=== PATIENT | female | born 1935 | race Caucasian/White ===

== ENCOUNTER 2021-12-31 07:35 | Day surgery (SDC) | payer MEDICARE ==
[~2021-12-31] VITALS: Ht 160 cm; Wt 81.4 kg
[2021-12-31] VITALS (10 sets, daily range): BP systolic 148–161; BP diastolic 43–109
[~2021-12-31 07:35] MED LIST: ASPI81TA52 PO; CLOP75TA34 PO; GLIM4TAB7 PO; LEVE250T PO; LIDOcaine 1%/PF 5ML 10 MG/ML VIAL IJ ONE; LOPE2CAP PO; MIDO5TAB4 PO; PIOG30TA10 PO; SIMV-42 PO; TRIA1CAP6 PO
[2021-12-31] MEDS ORDERED: albumin 25% 100mL bottle x 1 IV PRN (07:55)
[2021-12-31] MEDS ORDERED: ATOR-2 PO (08:06)
[2021-12-31] MEDS ORDERED: METO-384 PO (08:06)
[2021-12-31] MEDS ORDERED: CLOP75TA15 PO (08:10)
[2021-12-31 11:18] LABS: BF WBC COUNT 450 /CU MM (0-1000); BFAPPEAR HAZY; BFCOLOR YELLOW; BFVOLUME 50 ML
[2021-12-31 11:19] LABS: BF MESOTHELIAL CELLS FEW; BF RBC COUNT 880 /CU MM; LYMPHOCYTES,BODY FLUID 88 %; MONOCYTES,BODY FLUID 5 %; NEUTROPHILS,BODY FLUID 7 %
== END 2021-12-31 11:30 | disposition home or self-care (01) ==
LOC: SSTAY O 07:35
PROVIDERS: ATTEND Radiology Vascular & Interventional Radiology
DX: J90 Pleural effusion, not elsewhere classified (principal); E11.9 Type 2 diabetes mellitus without complications; I10 Essential (primary) hypertension; E78.00 Pure hypercholesterolemia, unspecified; E66.01 Morbid (severe) obesity due to excess calories; Z68.31 Body mass index [BMI] 31.0-31.9, adult; I65.22 Occlusion and stenosis of left carotid artery; Z85.42 Personal history of malignant neoplasm of other parts of uterus; Z86.73 Personal history of transient ischemic attack (TIA), and cerebral infarction without residual deficits; Z87.440 Personal history of urinary (tract) infections; Z79.899 Other long term (current) drug therapy; Z98.890 Other specified postprocedural states; Z79.84 Long term (current) use of oral hypoglycemic drugs
CPT/HCPCS: 32555; 89051

== ENCOUNTER 2022-03-29 14:25 | Observation (INO) | payer MEDICARE ==
[2022-03-25 12:40] LABS: BASOPHILS % (AUTO) 0.1 % (0-1); EOSINOPHILS % (AUTO) 0 % (0-6); HEMATOCRIT 42.4 % (35.0-45.0); HEMOGLOBIN 13.7 g/dl (12.0-16.0); LYMPHOCYTES # (AUTO) 1.8 X10'3 (1.1-4.8); LYMPHOCYTES % (AUTO) 23.9 % (21-51); MEAN CORPUSCULAR HEMOGLOBIN 29.4 PG (27.0-31.0); MEAN CORPUSCULAR HGB CONC 32.3 g/dL (33.0-36.5); MEAN CORPUSCULAR VOLUME 90.9 FL (78-98); MONOCYTES # (AUTO) 0.4 X10'3 (0-0.9); MONOCYTES % (AUTO) 5.8 % (2-12); NEUTROPHILS # (AUTO) 5.4 X10'3 (1.8-7.7); NEUTROPHILS % (AUTO) 70.2 % (42-75); PLATELET COUNT 162 X10'3 (140-440); RED BLOOD COUNT 4.67 X10'6 (4.20-5.60); RED CELL DISTRIBUTION WIDTH 14.4 % (11.5-14.5); WHITE BLOOD COUNT 7.7 X10'3 (4.5-11.0)
[2022-03-25 12:52] LABS: APTT 25 SECONDS (22-32)
[2022-03-25 13:00] LABS: ALBUMIN 3.3 G/DL (3.4-5.0); ANION GAP 8 (8-16); BLOOD UREA NITROGEN 14 MG/DL (7-18); BUN/CREATININE RATIO 13.7 (6.6-38.0); CALCIUM 8.8 MG/DL (8.5-10.1); CHLORIDE 105 MMOL/L (99-107); CHOL/HDL RATIO 2.4 (0.00-4.99); CHOLESTEROL 156 MG/DL (0-200); CREATININE 1.02 MG/DL (0.40-0.90); GLUCOSE 83 MG/DL (70-104); HDL CHOLESTEROL 65 MG/DL (35-60); LDL CHOLESTEROL 73 MG/DL (50-100); POTASSIUM 3.7 MMOL/L (3.5-5.1); SODIUM 144 MMOL/L (135-145); TOTAL CARBON DIOXIDE 31.4 MMOL/L (24-32); TRIGLYCERIDES 71 MG/DL (20-135); eGFR 51 ML/MIN
[~2022-03-29] VITALS: Ht 160 cm; Wt 74.7 kg
[~2022-03-29 14:25] MED LIST changes: -ASPI81TA52 PO; +ATOR-2 PO; +CLOP75TA15 PO; -CLOP75TA34 PO; -LEVE250T PO; -LIDOcaine 1%/PF 5ML 10 MG/ML VIAL IJ ONE; -LOPE2CAP PO; +METO-384 PO; -MIDO5TAB4 PO; -PIOG30TA10 PO; -SIMV-42 PO
[2022-03-29] MEDS ORDERED: diphenhydrAMINE 25mg capsule PO PRN (14:45)
[2022-03-29] MEDS ORDERED: LORazepam 0.5 MG tablet PO PRN (14:45)
[2022-03-29 15:00] VITALS: BP 148/65
[2022-03-29] MEDS ORDERED: nitroGLYCERIN-Tridil 50MG/D5W 250 ML IV ONE (16:26)
[2022-03-29] MEDS ORDERED: heparin 1,000unit/ml 10ml vial 10 ML ONE (16:26)
[2022-03-29] MEDS ORDERED: verapamil 2.5 mg/ml inj IV ONE (16:26)
[2022-03-29] MEDS ORDERED: midazolam 1 mg/ML 2ml injection ONE (16:26)
[2022-03-29] MEDS ORDERED: fentaNYL/PF 50MCG/1 ML 2ML syringe ONE (16:26)
[2022-03-29] MEDS ORDERED: iohexol 350MG/ML 100ml bottle IV ONE (16:27)
[2022-03-29] MEDS: normal saline 1,000 ML IV SCH ×2 (16:27→21:19)
[2022-03-29] MEDS ORDERED: LIDOcaine 1% 30ml preserv. free vial ONE (16:34)
--- NOTE | 2022-03-29 19:55 | NUR ---
Received report from Derrek PORTILLO in the cath lab technologist. Pt arrived on the unit via gurney and was slid over to her bed without complications. Pts daughter, Venita , was at bedside and has the pts belongings. Pt vital signs were stab;e. she was alert and oreinted with no signs of distress or bleeding from the punture site. Will continue to monitor.
[2022-03-29 20:18] VITALS: BP 138/55
[2022-03-29 22:19] VITALS: BP 130/58
--- NOTE | 2022-03-29 22:22 | NUR ---
Pt's radial balloon was emptied every 15 minutes by 3ml without incident. Gauze and Tegaderm placed and monitored for an additional 15 minutes with no signs of bleeding. Pt was assisted back into her clothes by her daughter and all discharge instructions were explained and signs by pt. VSS and on room air, pt was taken by wheelchair to her daughters car and discharged home.
[2022-03-30 06:18] LABS: ISTAT HGB ART 11.9 g/dl (12.0-16.0); ISTAT Hct ART 35 %PCV (35-48); ISTAT O2 SATURATION ARTERIAL 94 % (95-98); ISTAT SOURCE BLNK
[2022-03-30 06:19] LABS: ISTAT Hct MIX 37 %PCV (35-48); ISTAT O2 SATURATION MIX VENOUS 75 % (60-80); ISTAT SOURCE BLNK
[2022-03-30] MEDS ORDERED: triamterene/HCTZ 37.5/25mg tablet PO SCH (08:00)
[2022-03-30] MEDS ORDERED: atorvastatin 20mg tablet PO SCH (08:00)
[2022-03-30] MEDS ORDERED: clopidogrel 75mg tablet PO SCH (08:00)
[2022-03-30] MEDS ORDERED: metoprolol succinate 25mg (24-HOUR) SR. Tablet PO SCH (08:00)
== END 2022-03-29 22:22 | disposition home or self-care (01) ==
LOC: SSTAY O 14:25 → PCU 3S 20:30 → INTOOBSV 20:30
PROVIDERS: ADMIT Internal Medicine Interventional Cardiology; ATTEND Internal Medicine Interventional Cardiology
DX: I35.0 Nonrheumatic aortic (valve) stenosis (principal); I65.23 Occlusion and stenosis of bilateral carotid arteries; G47.33 Obstructive sleep apnea (adult) (pediatric); I07.1 Rheumatic tricuspid insufficiency; E11.9 Type 2 diabetes mellitus without complications; I10 Essential (primary) hypertension; I73.9 Peripheral vascular disease, unspecified; I27.20 Pulmonary hypertension, unspecified; Z79.899 Other long term (current) drug therapy
CPT/HCPCS: 36415; 80048; 80061; 82803; 82948; 85014; 85025; 85610; 85730; 87081; 93005; 93456; A6258; C1751; C1894; G0378; J1644; J2250; J3010; J3490; J7030; Q0163; Q9967; 99152; A4620; A5120

== ENCOUNTER 2022-05-07 10:01 | Outpatient (CLI) | payer MEDICARE ==
[~2022-05-07 10:01] MED LIST changes: -TRIA1CAP6 PO; +TRIA1CAP88 PO
[2022-05-07 10:58] LABS: BASOPHILS % (AUTO) 0.2 % (0-1); EOSINOPHILS % (AUTO) 0.1 % (0-6); HEMATOCRIT 41.9 % (35.0-45.0); LYMPHOCYTES # (AUTO) 1.2 X10'3 (1.1-4.8); LYMPHOCYTES % (AUTO) 17.8 % (21-51); MEAN CORPUSCULAR HGB CONC 33.5 g/dL (33.0-36.5); MEAN CORPUSCULAR VOLUME 89.7 FL (78-98); MEAN PLATELET VOLUME 8.9 FL (7.4-10.4); MONOCYTES # (AUTO) 0.4 X10'3 (0-0.9); MONOCYTES % (AUTO) 5.4 % (2-12); NEUTROPHILS # (AUTO) 5.2 X10'3 (1.8-7.7); NEUTROPHILS % (AUTO) 76.5 % (42-75); PLATELET COUNT 160 X10'3 (140-440); RED BLOOD COUNT 4.67 X10'6 (4.20-5.60); RED CELL DISTRIBUTION WIDTH 14.8 % (11.5-14.5); WHITE BLOOD COUNT 6.8 X10'3 (4.5-11.0)
[2022-05-07 11:06] LABS: APTT 25 SECONDS (22-32)
[2022-05-07 11:09] LABS: ALANINE AMINOTRANSFERASE 29 U/L (12-78); ALBUMIN 3.2 G/DL (3.4-5.0); ALBUMIN/GLOBULIN RATIO 0.9 (1.1-1.5); ALKALINE PHOSPHATASE 124 IU/L (46-116); ANION GAP 9 (8-16); ASPARTATE AMINO TRANSFERASE 24 U/L (10-37); BILIRUBIN,TOTAL 0.7 MG/DL (0.1-1.0); BLOOD UREA NITROGEN 23 MG/DL (7-18); BUN/CREATININE RATIO 21.3 (6.6-38.0); CALCIUM 8.8 MG/DL (8.5-10.1); CHLORIDE 104 MMOL/L (99-107); CREATININE 1.08 MG/DL (0.40-0.90); GLUCOSE 169 MG/DL (70-104); POTASSIUM 3.3 MMOL/L (3.5-5.1); SODIUM 143 MMOL/L (135-145); TOTAL CARBON DIOXIDE 29.9 MMOL/L (24-32); TOTAL PROTEIN 6.6 G/DL (6.4-8.2); eGFR 48 ML/MIN
[2022-05-07] MEDS ORDERED: iohexol 350 MG/1 ML 200ml bottle ONE (11:30)
[2022-05-07] MEDS ORDERED: albuterol 2.5 MG/3 ML nebule NEB PRN (13:25)
== END 2022-05-07 23:59 | disposition home or self-care (01) ==
LOC: RAD 10:01
PROVIDERS: ATTEND Internal Medicine Cardiovascular Disease
DX: Z01.818 Encounter for other preprocedural examination (principal); I70.0 Atherosclerosis of aorta; I70.8 Atherosclerosis of other arteries; I51.7 Cardiomegaly; K45.8 Other specified abdominal hernia without obstruction or gangrene; M47.814 Spondylosis without myelopathy or radiculopathy, thoracic region; M19.011 Primary osteoarthritis, right shoulder; M19.012 Primary osteoarthritis, left shoulder; I35.0 Nonrheumatic aortic (valve) stenosis; I65.29 Occlusion and stenosis of unspecified carotid artery; Z79.899 Other long term (current) drug therapy
CPT/HCPCS: 36415; 71046; 71275; 74174; 80053; 85025; 85610; 85730; 94010; 94727; 94729; 94760; J3490; Q9967

== ENCOUNTER 2022-06-17 08:45 | Inpatient (IN) | payer MEDICARE ==
[2022-06-10 14:50] LABS: CLARITY,URINE CLOUDY (Clear); COLOR,URINE YELLOW (Yellow); GLUCOSE, URINE NEGATIVE (Neg); KETONES,URINE NEGATIVE (Neg); LEUKOCYTE ESTERASE ,URINE NEGATIVE (Neg); NITRITES, URINE NEGATIVE (Neg); OCCULT BLOOD,URINE NEGATIVE (Neg); PROTEIN,URINE NEGATIVE (Neg); UROBILINOGEN,URINE 0.2 E.U/dL (0.2-1.0)
[2022-06-10 15:02] LABS: BASOPHILS % (AUTO) 0.2 % (0-1); EOSINOPHILS % (AUTO) 0 % (0-6); LYMPHOCYTES # (AUTO) 1.4 X10'3 (1.1-4.8); LYMPHOCYTES % (AUTO) 22.1 % (21-51); MEAN CORPUSCULAR HEMOGLOBIN 30.5 PG (27.0-31.0); MEAN CORPUSCULAR HGB CONC 34.1 g/dL (33.0-36.5); MEAN CORPUSCULAR VOLUME 89.3 FL (78-98); MEAN PLATELET VOLUME 8.9 FL (7.4-10.4); MONOCYTES # (AUTO) 0.4 X10'3 (0-0.9); NEUTROPHILS # (AUTO) 4.6 X10'3 (1.8-7.7); NEUTROPHILS % (AUTO) 71.7 % (42-75); PRE OP HEMATOCRIT 39.5 % (35.0-45.0); PRE OP HEMOGLOBIN 13.5 g/dL (12.0-16.0); PRE OP PLATELET COUNT 127 X10'3 (140-440); PRE OP PROTIME 10.3 SECONDS (9.0-12.0); RED BLOOD COUNT 4.42 X10'6 (4.20-5.60); RED CELL DISTRIBUTION WIDTH 15.4 % (11.5-14.5)
[2022-06-10 15:07] LABS: HEMOGLOBIN A1C 5.9 % (4.5-6.2)
[2022-06-10 15:10] LABS: UA COLLECTION TYPE CLN CATCH MIDSTREAM
[2022-06-10 15:11] LABS: SQUAMOUS EPITHELIAL CELL,UR MANY /LPF (FEW)
[2022-06-10 15:12] LABS: BACTERIA,URINE 1+ /HPF (Neg); MUCUS STRANDS MODERATE /LPF (Neg); RBC,URINE 0-2 /HPF (0-2)
[2022-06-10 15:13] LABS: WBC,URINE 0-4 /HPF (0-4)
[2022-06-10 15:18] LABS: ALBUMIN 3.3 G/DL (3.4-5.0); ALKALINE PHOSPHATASE 124 IU/L (46-116); BLOOD UREA NITROGEN 19 MG/DL (7-18); CALCIUM 8.5 MG/DL (8.5-10.1); CHLORIDE 105 MMOL/L (99-107); PRE OP ALT 31 U/L (30-65); PRE OP ANION GAP 7 (8-16); PRE OP AST 22 U/L (10-37); PRE OP BILIRUB, TOTAL 0.6 MG/DL (0.0-1.0); PRE OP GLUCOSE 124 MG/DL (70-104); PRE OP POTASSIUM 3.8 MMOL/L (3.4-5.1); PRE OP SODIUM 143 MMOL/L (135-145); TOTAL CARBON DIOXIDE 31.3 MMOL/L (24-32); TOTAL PROTEIN 6.6 G/DL (6.4-8.2); eGFR 53 ML/MIN
[~2022-06-17] VITALS: Ht 157.5 cm; Wt 73.9 kg
[2022-06-17] VITALS (22 sets, daily range): BP systolic 118–174; BP diastolic 37–133
[~2022-06-17 08:45] MED LIST changes: +DOCUMENT DATE & TIME OF BETA-BLOCKER PO ONE; +aspirin 325mg tablet, delayed-release (Ecotrin) PO ONE; +ceFAZolin inj. 2,000 MG in dextrose 5%-water 100 ML IV ONE; +famotidine 20mg tablet PO ONE; +nitroPRUSSIDE (NIPRIDE) (200MCG/ML) 100ML Drip IV SCH; +ondansetron/PF 4mg/2ml inj IV PRN; +phenylephrine inj 50 MG in normal saline 250ml IV solN IV SCH; +protamine sulfate 10mg/ml inj. ONE; +ringers solution, lacted 1,000 ML IV SCH; +vancomycin 1,500 MG in NS 300ml IV soln IV ONE
[2022-06-17] MEDS ORDERED: iohexol 350MG/ML 100ml bottle IV ONE (11:32)
[2022-06-17] MEDS ORDERED: LIDOcaine 1% 30ml preserv. free vial ONE (11:32)
[2022-06-17] MEDS ORDERED: heparin 1,000 UNITS/NS 500ml 1,500 ML ONE (11:33)
[2022-06-17] MEDS ORDERED: meperidine/PF 25mg/ml syringe IV PRN ×3 (11:40)
[2022-06-17] MEDS ORDERED: morphine 2 MG/ML inj. syringe IV PRN (11:40)
[2022-06-17] MEDS ORDERED: ondansetron/PF 4mg/2ml inj IV PRN ×2 (11:40→13:05)
[2022-06-17] MEDS ORDERED: proCHLORperazine 10 MG/2 ml inj IV PRN ×2 (11:40→13:05)
[2022-06-17] MEDS ORDERED: ringers solution, lacted 1,000 ML IV SCH (11:40)
[2022-06-17] MEDS ORDERED: morphine 4 MG/ML inj SYRINge IV PRN (11:40)
[2022-06-17] MEDS ORDERED: fentaNYL/PF 50MCG/1 ML 2ML syringe ONE (11:44)
[2022-06-17] MEDS ORDERED: midazolam 1 mg/ML 2ml injection ONE (11:45)
[2022-06-17] MEDS ORDERED: propofol inj 20 ML IV ONE (11:47)
[2022-06-17] MEDS ORDERED: heparin 1,000unit/ml 10ml vial 10 ML ONE (12:58)
[2022-06-17] MEDS ORDERED: ALPRAZolam 0.25mg tablet PO PRN (13:05)
[2022-06-17] MEDS ORDERED: hydrALAZINE 20mg/ml inj. IV PRN (13:05)
[2022-06-17] MEDS ORDERED: acetaminophen 325mg tablet PO PRN (13:05)
[2022-06-17] MEDS ORDERED: docusate sod 100mg capsule PO PRN (13:05)
[2022-06-17] MEDS ORDERED: pantoprazole 40mg Tablet.DR PO PRN (13:05)
[2022-06-17] MEDS ORDERED: glucagon, human recombinant 1mg kit SUBCUT PRN (13:05)
[2022-06-17] MEDS ORDERED: MESSAGE TO PHARMACY PO ONE (13:05)
[2022-06-17] MEDS ORDERED: DEXTROSE 15 GM of carb/4 tabs (each vial/BOTTLE has 4 tablets) PO PRN ×2 (13:05)
[2022-06-17] MEDS ORDERED: labetalol 20mg/4ml (5mg/ml) syringe IV PRN (13:05)
[2022-06-17] MEDS ORDERED: dextrose 50%-water 50ml dispensing syringe IV PRN ×2 (13:05)
[2022-06-17] MEDS ORDERED: insulin Lispro (HumaLOG) vial - multi-dose SQ SCH (13:05)
[2022-06-17] MEDS ORDERED: insulin regular, human U-100 3ml vial - multi-dose SQ SCH (13:05)
[2022-06-17] MEDS ORDERED: diphenhydrAMINE 25mg capsule PO PRN (13:05)
--- NOTE | 2022-06-17 13:08 | NUR ---
Received from OR via , accompanied by Anesthesiologist NERY and OR NURSE. report given by Anesthesiolgist. PT AWAKE AND ALERT; MAI PAIN OR DISCOMFORT. BLFEMORAL ACCESS SITES CDI. BILATERAL DP PULSES WNL. VSS. ART LINE TO L WRIST; ZEROED/WNL. Addendum: 06/17/22 at 1443 by Jenni Ojeda RN Amended: Links added.
--- NOTE | 2022-06-17 15:08 | NUR ---
Report called to receiving nurse. Transferred via bed. ONE BAG OF Belongings senT WITH PT. NURSE AT BEDSIDE TO RECEIVE PT. FAMILY AT BEDSIDE. VSS. SURGICAL SITES CDI. KEKE WNL. NEUROLOGICALLY INTACT. PT ON ROOM AIR AND CONTINUES TO DENY PAIN AND DISCOMFORT. Special Issues communicated to receiving nurse. Addendum: 06/17/22 at 1516 by Jenni Ojeda RN Amended: Links added.
[2022-06-17] MEDS: sod chloride 0.9% 10ml flush syringe IV SCH (16:39)
[2022-06-17] MEDS: ceFAZolin 1GM/D5W- ADD-VANTAGE 50 ML IV SCH (17:17)
[2022-06-17] MEDS: normal saline 1000ml 1,000 ML IV SCH ×2 (17:17→23:05)
[2022-06-17] MEDS: vancomycin/NS 1 GM ADD-VANTAGE 250 ML IV SCH (20:22)
[2022-06-17] MEDS ORDERED: insulin glargine (Lantus) pen - multi-dose SQ SCH (21:00)
[2022-06-18] MEDS: ceFAZolin 1GM/D5W- ADD-VANTAGE 50 ML IV SCH ×2 (00:43→08:02)
[2022-06-18 02:00] VITALS: BP 113/35
[2022-06-18 06:00] VITALS: BP 113/29
[2022-06-18] MEDS: normal saline 1000ml 1,000 ML IV SCH (06:09)
[2022-06-18 06:53] LABS: BASOPHILS % (AUTO) 0.3 % (0-1); EOSINOPHILS % (AUTO) 0.3 % (0-6); HEMATOCRIT 37.6 % (35.0-45.0); HEMOGLOBIN 12.6 g/dl (12.0-16.0); LYMPHOCYTES # (AUTO) 1.2 X10'3 (1.1-4.8); LYMPHOCYTES % (AUTO) 17.2 % (21-51); MEAN CORPUSCULAR HEMOGLOBIN 30.2 PG (27.0-31.0); MEAN CORPUSCULAR HGB CONC 33.4 g/dL (33.0-36.5); MEAN CORPUSCULAR VOLUME 90.4 FL (78-98); MEAN PLATELET VOLUME 8.8 FL (7.4-10.4); MONOCYTES # (AUTO) 0.7 X10'3 (0-0.9); MONOCYTES % (AUTO) 10.4 % (2-12); NEUTROPHILS # (AUTO) 5.1 X10'3 (1.8-7.7); NEUTROPHILS % (AUTO) 71.8 % (42-75); PLATELET COUNT 114 X10'3 (140-440); RED BLOOD COUNT 4.16 X10'6 (4.20-5.60); RED CELL DISTRIBUTION WIDTH 15.1 % (11.5-14.5)
[2022-06-18 07:24] LABS: ALANINE AMINOTRANSFERASE 17 U/L (12-78); ALBUMIN 2.8 G/DL (3.4-5.0); ALBUMIN/GLOBULIN RATIO 1.1 (1.1-1.5); ALKALINE PHOSPHATASE 102 IU/L (46-116); ANION GAP 9 (8-16); ASPARTATE AMINO TRANSFERASE 27 U/L (10-37); BILIRUBIN,TOTAL 0.7 MG/DL (0.1-1.0); BLOOD UREA NITROGEN 16 MG/DL (7-18); BUN/CREATININE RATIO 16.7 (6.6-38.0); CALCIUM 8.1 MG/DL (8.5-10.1); CHLORIDE 109 MMOL/L (99-107); CREATININE 0.96 MG/DL (0.40-0.90); GLUCOSE 96 MG/DL (70-104); MAGNESIUM 1.5 MG/DL (1.5-2.4); POTASSIUM 3.3 MMOL/L (3.5-5.1); SODIUM 146 MMOL/L (135-145); TOTAL CARBON DIOXIDE 28.2 MMOL/L (24-32); TOTAL PROTEIN 5.4 G/DL (6.4-8.2); eGFR 55 ML/MIN
[2022-06-18] MEDS ORDERED: clopidogrel 75mg tablet PO SCH ×2 (08:00)
[2022-06-18] MEDS ORDERED: triamterene/HCTZ 37.5/25mg tablet PO SCH (08:00)
[2022-06-18] MEDS ORDERED: atorvastatin 20mg tablet PO SCH (08:00)
[2022-06-18] MEDS ORDERED: metoprolol succinate 25mg (24-HOUR) SR. Tablet PO SCH (08:00)
[2022-06-18] MEDS: sod chloride 0.9% 10ml flush syringe IV SCH ×2 (08:05)
[2022-06-18] MEDS: vancomycin/NS 1 GM ADD-VANTAGE 250 ML IV SCH (09:15)
[2022-06-18 11:00] VITALS: BP 128/41
[2022-06-18] MEDS ORDERED: potassium Cl 20 mEq SR tablet PO ONE (11:00)
--- NOTE | 2022-06-18 11:00 | NUR ---
Pt ambulated with a walker 40 ft. slight dizziness noted.
--- NOTE | 2022-06-18 14:15 | NUR ---
Discharge instructions discussed with patient and daughter at bedside. All doctors appointments discussed. Pt's daughter stated that she will be going to all the appointments. All Medications discusssed. All questions answered. PIV removed. Pt left unit via wheelchair with daughter in private car.
--- NOTE | 2022-06-18 14:16 | NUR ---
Valve card discussed with patient. Pt states she understands. Pt has possession of the card as she leaves the unit.
--- NOTE | 2022-06-25 09:26 | NUR ---
Case Management DC follow up: Spoke with Patient via telephone.S/P: Patient Reports: Denies: Acute/continuous CP, emergent SOB, resp distress, orthopnea, dyspnea, N/V,weakness, syncope episodes, orthostatic hypotension; however, verbalizes she has vertigo.Verbalized this am she had a bout of vertigo while using the commode.Verbalized understanding while on Plavix there is an increase chance of bruising and/or bleeding.Verbalizes understanding of s/s that warrant a 9-11/ER visit for further evaluation.Verbalizes her niece whom is an RN has been staying with her. Denies: [place], blurry vision, s/s of stroke/BE-FAST, dysuria, hematuria, retention,abdominal pain/distention, hematochezia, melena, unexplained bruising, bleeding, fever, chills.Verbalizes understanding of Rx:, why prescribed; continues/resumes current Rx as ordered.Verbalizes her bilateral groin cath sites have dressings , no s/s if infection, drainage and/or bad odor. Verbalized she has seen her PCP 06/23/22, and has scheduled follow up appointments with 06/25/22, and 07/06/22 for EKG and Echo.Scheduled follow up appointment with is on 07/15/22. Verbalizes the care she received while in the hospital made her feel special. Needs met, questions/concerns addressed at DC; no further questions/concerns regarding recent hospital stay and/or DC status at this time.
== END 2022-06-18 14:28 | disposition home or self-care (01) | DRG 267 ==
LOC: PAS IN 08:45 → PCU 3S 15:28
PROVIDERS: ADMIT Internal Medicine Cardiovascular Disease; ATTEND Internal Medicine Cardiovascular Disease
PROC: B41D1ZZ Fluoroscopy of Aorta and Bilateral Lower Extremity Arteries using Low Osmolar Contrast (ICD-10-PCS; 2022-06-17)
PROC: 02RF38Z Replacement of Aortic Valve with Zooplastic Tissue, Percutaneous Approach (ICD-10-PCS; principal; 2022-06-17 12:04)
DX: I35.0 Nonrheumatic aortic (valve) stenosis (principal); Z00.6 Encounter for examination for normal comparison and control in clinical research program; E11.51 Type 2 diabetes mellitus with diabetic peripheral angiopathy without gangrene; E78.5 Hyperlipidemia, unspecified; I11.0 Hypertensive heart disease with heart failure; I50.9 Heart failure, unspecified; G47.33 Obstructive sleep apnea (adult) (pediatric); Z79.02 Long term (current) use of antithrombotics/antiplatelets; Z85.828 Personal history of other malignant neoplasm of skin; Z86.73 Personal history of transient ischemic attack (TIA), and cerebral infarction without residual deficits; Z92.3 Personal history of irradiation
CPT/HCPCS: 33361; 36415; 71045; 71046; 76937; 80053; 81001; 82948; 83036; 83735; 83880; 85025; 85347; 85610; 85730; 86885; 86900; 86901; 86920; 87081; 87811; 93005; 93308; A4615; A4618; A6258; A6449; C1756; C1760; C1769; C1894; G0378; J0690; J1644; J1815; J2250; J2370; J2405; J2704; J2720; J3010; J3370; J3490; J7030; J7040; J7050; J7060; J7120; Q9967